=== PATIENT | male | born 1970 | race Caucasian/White ===

== ENCOUNTER → 2024-12-19 | Outpatient (CLI) | payer BC, SELFPAY ==
--- NOTE | 2024-12-19 07:30 | XR_ITS ---
Examination: CT chest, without intravenous contrast. Sagittal and coronal 2-D reconstructions. Exam date and time: December 19, 2024 0743 hours INDICATIONS: Nicotine dependence, smoking history 20 years CTDI:vol (mGy) 16 DLP: (mGycm) 650 Technique: Multiple 3.0 mm axial sections of the chest to been obtained. Bone and lung density settings are obtained. Sagittal and coronal 2-D reconstructions have been obtained. Low dose protocols were performed. One or more of the following dose reduction techniques were used; automated exposure control, adjustment of the mA and/or KV according to patient size, use of iterative reconstruction technique. Findings: AP dimension ascending thoracic aorta 3.8 cm Pulmonary artery segments do not exhibit significant enlargement Mild calcification left anterior descending coronary artery No pneumonia, pulmonary edema, pleural disease or pulmonary nodules No visualized liver or splenic lesion Splenomegaly AP dimension 14 cm No pancreatic mass Kidneys partially visualized no hydronephrosis IMPRESSION:: No mediastinal lymphadenopathy No pneumonia, pulmonary edema, pleural disease or pulmonary nodules
== END | disposition home or self-care (01) ==
LOC: CCTX 07:17
PROVIDERS: PCP Nurse Practitioner; Referring Provider Nurse Practitioner; Visit Provider Nurse Practitioner
DX: Z87.891 Personal history of nicotine dependence (principal)
CPT/HCPCS: 71271